=== PATIENT | female | born 1940 | race Hispanic/Latino ===

== ENCOUNTER → 2018-10-10 | Day surgery (SDC) | payer MEDICARE ==
[2018-10-03 14:31] LABS: BASOPHILS % 0.4 % (0.0-1.0); EOSINOPHILS # (AUTO) 0.2 (0.0-0.4); EOSINOPHILS % 2.9 % (0.0-6.0); HEMOGLOBIN 14.1 g/dL (12.0-16.0); LYMPHOCYTES # (AUTO) 2.4 (1.0-3.2); LYMPHOCYTES % 30.8 % (18.0-39.1); MEAN CORPUSCULAR HEMOGLOBIN 30.6 pg (28-32); MEAN CORPUSCULAR HGB CONC 32.8 g/dL (31-35); MEAN CORPUSCULAR VOLUME 93.3 fL (81-99); MONOCYTES # (AUTO) 0.9 (0.2-0.8); NEUTROPHILS # (AUTO) 4.3 (2.1-6.9); NEUTROPHILS % 54.6 % (38.7-80.0); PLATELET COUNT 268 x10e3/uL (140-360); RED BLOOD COUNT 4.61 x10e6/uL (3.6-5.1); RED CELL DISTRIBUTION WIDTH 12.3 % (11.7-14.4)
[~2018-10-10] MED LIST: ALENDRONATE SOD70 MG PO; ARICEPT5 MG PO; EFFEXOR XR150 MG PO; ELIQUIS PO; FENTANYL CITRATE/PF 100MCG/2 ML INJ ONE; GLYBURIDE5 MG PO; METFORMIN HCL850 MG PO; METOPROLOL SUCC50 MG PO; MIDAZOLAM HCL 2 MG/2 ML VIAL ONE; PRAVASTATIN SOD10 MG PO; PROPOFOL IV EMULSION 10 MG/ML 50 ML VIAL ONE; SYNTHROID100 MCG PO; TOLTERODINE TART2 MG PO
--- OUTSIDE RECORDS SUMMARY | 2018-10-10 06:20 | XMS REPORT | Summary of Care ---
Author Author CARRIE SANCHEZ M.D. Organization Unknown Address [facility] Phone Unavailable Care Team Providers Care Communications Senior Associate Name Role Phone CARRIE SANCHEZ M.D. Unavailable Unavailable Unavailable Unavailable Functional Status Name Dates Details Functional status health issues are not documented Status: Name Dates Details Cognitive status health issues are not documented Status: Problems Name Dates Details Primary osteoarthritis of left knee (715.16, M17.12) Status: Active Medications Name Dates Details Diclofenac Sodium 75 MG Oral Tablet Delayed Release TAKE 1 TABLET TWICE DAILY Quantity: 1 CARRIE SANCHEZ M.D. * Start : 25-Jan-2018 Active 60 Tablet Bottle Celecoxib 200 MG Oral Capsule TAKE 1 CAPSULE TWICE DAILY WITH FOOD. * Quantity: 60 Refills: 1 CARRIE SANCHEZ M.D. * Start : 04-May-2018 Active Allergies and Adverse Reactions Name Dates Details No Known Drug Allergies (Allergy) Status: Active Procedures Procedure Dates Details Procedures not documented Immunization Name Dates Details Immunizations not documented Social History Name Dates Details - Status: Name Dates Details Never smoker Vital Signs Date Test Result Details [id number] Weight 158 lb Status: Body Mass Index Calculated 28.9 kg/m2 Status: Body Surface Area Calculated 1.73 m2 Status: Results Date Description Value Details Results not documented Plan of Care Name Dates Details Planned Observations Planned Goals not documented Planned Encounters Appointment; CARRIE SANCHEZ M.D. On: 16-Oct-2018 11:15 Interventions Provided Medications/Immunizations Administered* Triamcinolone Acetonide 40 MG/ML Injection Suspension Plan* At this time we will send her for MRI of the cervical spine due to chronic neck pain. Follow my clinic to review results. Start Medrol Dosepak as well as consideration of PT. Instructions Name Dates Details Instructions not documented Encounters Appointment; CARRIE SANCHEZ M.D. Encounter Diagnosis: Problem not documented On: 25-Jan-2018 9:30 Appointment; CARRIE SANCHEZ M.D. Encounter Diagnosis: Problem not documented On: 04-May-2018 10:15 Appointment; CARRIE SANCHEZ M.D. Encounter Diagnosis: Problem not documented On: 22-Jun-2018 10:45
[2018-10-10 10:06] VITALS: BP 134/81
== END | disposition home or self-care (01) ==
LOC: OR 06:18
PROVIDERS: ATTEND Internal Medicine Gastroenterology
DX: K29.50 Unspecified chronic gastritis without bleeding (principal); D12.2 Benign neoplasm of ascending colon; K22.8 Other specified diseases of esophagus; K57.30 Diverticulosis of large intestine without perforation or abscess without bleeding; K64.8 Other hemorrhoids; B96.81 Helicobacter pylori [H. pylori] as the cause of diseases classified elsewhere; K56.7 Ileus, unspecified; I48.92 Unspecified atrial flutter; I10 Essential (primary) hypertension; E11.9 Type 2 diabetes mellitus without complications; E78.00 Pure hypercholesterolemia, unspecified; E03.9 Hypothyroidism, unspecified; M81.0 Age-related osteoporosis without current pathological fracture; F03.90 Unspecified dementia, unspecified severity, without behavioral disturbance, psychotic disturbance, mood disturbance, and anxiety; Z01.810 Encounter for preprocedural cardiovascular examination; Z01.812 Encounter for preprocedural laboratory examination; Z79.02 Long term (current) use of antithrombotics/antiplatelets; Z79.84 Long term (current) use of oral hypoglycemic drugs; Z68.30 Body mass index [BMI] 30.0-30.9, adult; Z83.79 Family history of other diseases of the digestive system
CPT/HCPCS: 36415 ×2; 43239; 45384; 82948; 85025; 88305; 88312; 93005; J2250; 45378